=== PATIENT | female | born 1990 | race Two or more races ===

== ENCOUNTER 2023-11-18 13:33 | Outpatient (REF) | payer MEDICAID, SELFPAY ==
[2023-11-18 16:48] LABS: TSH reflex Free T4 1.36 uIU/mL (0.32-4.0)
[2023-11-20 22:09] LABS: TS Negative Control Passed; TS Panel A 0; TS Panel B 0; TS Positive Control Passed; TSpotTB Negative (Negative)
== END 2023-11-18 13:34 | disposition home or self-care (01) ==
LOC: HO.HHCL 13:33
PROVIDERS: Visit Provider Internal Medicine
DX: Z00.00 Encounter for general adult medical examination without abnormal findings (principal)
CPT/HCPCS: 36415; 84443; 86481